=== PATIENT | female | born 1975 | race Caucasian/White ===

== ENCOUNTER 2020-09-27 11:11 | Emergency (ER) | payer SELFPAY ==
[~2020-09-27] VITALS: Ht 157.5 cm; Wt 90.7 kg
[~2020-09-27 11:11] MED LIST: KLONOPIN1 MG PO; LOPERAMIDE2 MG PO; ULTRAM50 MG PO; ZOLOFT50 MG PO
[2020-09-27] MEDS ORDERED: HYDROCODONE/APAP 5MG-325MG TAB PO NR (11:45)
[2020-09-27 17:05] VITALS: BP 125/84
== END 2020-09-27 15:00 | disposition home or self-care (01) ==
LOC: ER 12:22
DX: S63.501A Unspecified sprain of right wrist, initial encounter (principal); W00.0XXA Fall on same level due to ice and snow, initial encounter; Y93.01 Activity, walking, marching and hiking; Y92.008 Other place in unspecified non-institutional (private) residence as the place of occurrence of the external cause; F41.9 Anxiety disorder, unspecified; F32.9 Major depressive disorder, single episode, unspecified; Z87.19 Personal history of other diseases of the digestive system
CPT/HCPCS: 99283